=== PATIENT | male | born 1950 ===

== ENCOUNTER → 2021-08-25 13:23 | Outpatient (BNVA) | payer MEDICARE, SELFPAY | PROVIDERS: PCP Physician Assistant Medical; Visit Provider Nurse Practitioner Family | DX: G20 Parkinson's disease (principal) | CPT/HCPCS: 99202 ==

== ENCOUNTER → 2021-10-24 09:13 | Outpatient (BNVA) | payer MEDICARE, SELFPAY | PROVIDERS: PCP Internal Medicine; Visit Provider Nurse Practitioner Family | DX: G20 Parkinson's disease (principal) | CPT/HCPCS: 99212 ==